=== PATIENT | male | born 1990 | race Caucasian/White ===

== ENCOUNTER → 2025-09-22 | Outpatient (REF) | payer BC | LOC: M SMT 13:17 | PROVIDERS: ATTEND Urology | DX: Z30.2 Encounter for sterilization (principal) ==

== ENCOUNTER → 2025-11-23 | Outpatient (REF) | payer BC ==
[2025-11-23 10:29] LABS: SEMEN APPEARANCE OPAQUE (OPAQUE); SEMEN VISCOSITY VISCOUS (LIQUID); SEMEN VOLUME 6.0 ml (2.0-5.0)
[2025-11-23 10:30] LABS: WBC CONCENTRATION <=1 M/ml (<=1 M/ml)
== END ==
LOC: M SMT 10:19
PROVIDERS: ATTEND Urology
DX: Z30.2 Encounter for sterilization (principal)